=== PATIENT | female | born 1955 | race Caucasian/White ===

== ENCOUNTER 2020-04-19 08:43 | Emergency (ER) | payer MEDICARE, OTHER ==
[~2020-04-19] VITALS: Ht 154.9 cm; Wt 82.2 kg
[~2020-04-19 08:43] MED LIST: ALPR1TAB2 PO; AZIT250T6 PO; LISI-334 PO; PARO10TA57 PO; PRED50TA PO; SIMV10TA15 PO
[2020-04-19] MEDS ORDERED: methylPREDNISolone SOD SUCC PF 125 MG/2 ML VIAL. ONE (09:28)
[2020-04-19] MEDS ORDERED: IPRATRPIUM/ALBUTEROL 0.5/2.5MG 3 ML NEBU. NEB ONE (09:30)
[2020-04-19] MEDS ORDERED: methylPREDNISolone SOD SUCC PF 125 MG/2 ML VIAL. IV ONE (09:30)
--- NOTE | 2020-04-19 09:41 | RAD ---
CHEST AP ONLY 04/19/2020 9:13 AM INDICATION: Shortness of breath COMPARISON: 10/08/2007 TECHNIQUE: Portable frontal view of the chest is provided. FINDINGS: The cardiomediastinal silhouette is within normal limits. Lungs are clear. There are no significant pleural effusions. There is no pulmonary vascular congestion. No pneumothorax. No suspicious osseous abnormality. IMPRESSION: There is no acute cardiopulmonary process. Electronically signed by: Irma Perea MD (04/19/2020 9:38 AM) [id number]
[2020-04-19 09:45] LABS: BASO # 0.1 x10^3/uL (0.0-0.2); BASO % 1 % (0-3); EOS # 0.3 x10^3/uL (0.0-0.7); EOS % 3 % (0-3); HEMATOCRIT 40.6 % (36.0-47.0); HEMOGLOBIN 13.7 g/dL (12.0-15.5); LYMPH # 1.7 x10^3/uL (1.0-4.8); LYMPH % 16 % (24-48); MEAN CORPUSCULAR HEMOGLOBIN 31 pg (25-35); MEAN CORPUSCULAR HGB CONC 34 g/dL (31-37); MEAN CORPUSCULAR VOLUME 92 fL (79-100); MONO # 0.6 x10^3/uL (0.0-1.1); MONO % 6 % (0-9); NEUT # 8.3 x10^3/uL (1.8-7.7); NEUT % 75 % (31-73); PLATELET COUNT 250 x10^3/uL (140-400); RED BLOOD COUNT 4.43 x10^6/uL (3.50-5.40)
[2020-04-19 09:54] LABS: CALCIUM 8.9 mg/dL (8.5-10.1); CREATININE 0.9 mg/dL (0.6-1.0); GFR 62.6; POTASSIUM 4.4 mmol/L (3.5-5.1)
[2020-04-19 09:58] LABS: ALBUMIN 3.8 g/dL (3.4-5.0); ALBUMIN/GLOBULIN RATIO 1.2 (1.0-1.7); TOTAL BILIRUBIN 0.2 mg/dL (0.2-1.0); TOTAL PROTEIN 6.9 g/dL (6.4-8.2)
[2020-04-19] MEDS ORDERED: MORPHINE SULFATE 4 MG/ML VIAL. IV ONE (10:15)
[2020-04-19] MEDS ORDERED: ONDANSETRON PF 4 MG/2 ML VIAL. IVP ONE (10:15)
[2020-04-19] MEDS ORDERED: ALBU2.5V8 IH (11:28)
[2020-04-19] MEDS ORDERED: PRED20TA PO (11:28)
[2020-04-19] MEDS ORDERED: AZIT500T2 PO (11:28)
--- NOTE | 2020-04-19 11:28 | PHYS DOC ---
Past Medical History Past Medical History: Anxiety, Bipolar, COPD, Depression, Fibromyalgia, High Cholesterol, Hypertension, Other Additional Past Medical Histor: PTSD Past Surgical History: Appendectomy, Hysterectomy, Tonsillectomy Additional Past Surgical Histo: breast bx bilateral, ADENOIDECTOMY Smoking Status: Current Every Day Smoker Alcohol Use: Occasionally Drug Use: None Social History Narrative: former drug user General Adult EDM: Chief Complaint: SHORTNESS OF BREATH HPI: HPI: Patient is a 64 year old female presenting to the ED with a chief complaint of shortness of breath. Patient states that this is been going on for the last few days. Patient denies fever, chills, nausea, vomiting, chest pain. Patient stat es that she has many animals in her home and is not sure these are because of her allergies. Patient denies chest pain. Review of Systems: Review of Systems: Constitutional: Denies fever or chills. [] Eyes: Denies change in visual acuity. [] HENT: Denies nasal congestion or sore throat. [] Respiratory: Complains of shortness of breath [] Cardiovascular: Denies chest pain or edema. [] GI: Denies abdominal pain, nausea, vomiting, bloody stools or diarrhea. [] : Denies dysuria. [] Neurologic: Denies headache, focal weakness or sensory changes. [] Heart Score: Risk Factors: Risk Factors: DM, Current or recent (<one month) smoker, HTN, HLP, family history of CAD, obesity. Risk Scores: Score 0 - 3: 2.5% MACE over next 6 weeks - Discharge Home Score 4 - 6: 20.3% MACE over next 6 weeks - Admit for Clinical Observation Score 7 - 10: 72.7% MACE over next 6 weeks - Early Invasive Strategies Current Medications: Current Medications Medications (Trade) Dose Ordered Sig/Kaity Start Time Stop Time Status Last Admin Dose Admin Albuterol/ Ipratropium (Duoneb) 3 ml 1X ONCE 04/19/20 09:30 04/19/20 09:31 DC 04/19/20 09:28 3 ML Methylprednisolone Sodium Succinate (SOLU-Medrol 125MG VIAL) 125 mg STK-MED ONCE 04/19/20 09:28 04/19/20 09:28 DC Morphine Sulfate (Morphine Sulfate) 4 mg 1X ONCE 04/19/20 10:15 04/19/20 10:16 DC 04/19/20 10:41 4 MG Ondansetron HCl (Zofran) 4 mg 1X ONCE 04/19/20 10:15 04/19/20 10:16 DC 04/19/20 10:40 4 MG Allergies: Allergies: Allergies Coded Allergies Type Severity Reaction Last Updated Verified No Known Drug Allergies 11/24/13 No Physical Exam: PE: Constitutional: Well developed, well nourished, no acute distress, non-toxic appearance. [] HENT: Normocephalic, atraumatic Eyes: EOMI Neck: Normal range of motion, Supple Cardiovascular:Heart rate regular rhythm Lungs & Thorax: Bilateral rhonchi [] Abdomen: Bowel sounds normal, soft, no tenderness Extremities: No tenderness, ROM intact Neurologic: Alert and oriented X 3 Current Patient Data: Labs: Laboratory Tests Test 04/19/20 09:13 White Blood Count 11.0 x10^3/uL (4.0-11.0) Red Blood Count 4.43 x10^6/uL (3.50-5.40) Hemoglobin 13.7 g/dL (12.0-15.5) Hematocrit 40.6 % (36.0-47.0) Mean Corpuscular Volume 92 fL (79-100) Mean Corpuscular Hemoglobin 31 pg (25-35) Mean Corpuscular Hemoglobin Concent 34 g/dL (31-37) Red Cell Distribution Width 15.0 % (11.5-14.5) H Platelet Count 250 x10^3/uL (140-400) Neutrophils (%) (Auto) 75 % (31-73) H Lymphocytes (%) (Auto) 16 % (24-48) L Monocytes (%) (Auto) 6 % (0-9) Eosinophils (%) (Auto) 3 % (0-3) Basophils (%) (Auto) 1 % (0-3) Neutrophils # (Auto) 8.3 x10^3/uL (1.8-7.7) H Lymphocytes # (Auto) 1.7 x10^3/uL (1.0-4.8) Monocytes # (Auto) 0.6 x10^3/uL (0.0-1.1) Eosinophils # (Auto) 0.3 x10^3/uL (0.0-0.7) Basophils # (Auto) 0.1 x10^3/uL (0.0-0.2) Sodium Level 140 mmol/L (136-145) Potassium Level 4.4 mmol/L (3.5-5.1) Chloride Level 101 mmol/L (98-107) Carbon Dioxide Level 29 mmol/L (21-32) Anion Gap 10 (6-14) Blood Urea Nitrogen 12 mg/dL (7-20) Creatinine 0.9 mg/dL (0.6-1.0) Estimated GFR (Cockcroft-Gault) 62.6 BUN/Creatinine Ratio 13 (6-20) Glucose Level 131 mg/dL (70-99) H Lactic Acid Level 2.1 mmol/L (0.4-2.0) H Calcium Level 8.9 mg/dL (8.5-10.1) Total Bilirubin 0.2 mg/dL (0.2-1.0) Aspartate Amino Transferase (AST) 36 U/L (15-37) Alanine Aminotransferase (ALT) 51 U/L (14-59) Alkaline Phosphatase 89 U/L (46-116) Troponin I Quantitative < 0.017 ng/mL (0.000-0.055) Total Protein 6.9 g/dL (6.4-8.2) Albumin 3.8 g/dL (3.4-5.0) Albumin/Globulin Ratio 1.2 (1.0-1.7) Laboratory Tests 04/19/20 09:13 Laboratory Tests 04/19/20 09:13 Vital Signs: Vital Signs Date Time Temp Pulse Resp B/P (MAP) Pulse Ox O2 Delivery O2 Flow Rate FiO2 04/19/20 10:41 18 96 Nasal Cannula 2.0 04/19/20 09:00 98.6 104 166/85 (112) 98.6 EKG: EKG: EKG interpretation: 9: 04 AM on 04/19/2020 HR: 93 Sinus rhythm Regular intervals Normal axis Nonspecific ST changes No STEMI Radiology/Procedures: Radiology/Procedures: [] Impression: CXR IMPRESSION: There is no acute cardiopulmonary process. Course & Med Decision Making: Course & Med Decision Making Pertinent Labs and Imaging studies reviewed. (See chart for details) Ordered labs, EKG, chest x-ray, breathing treatment, Solu-Medrol EKG does not show any acute changes. Chest x-ray does not show any acute disease. Labs are within normal limits. Troponin is negative. Want to continue to monitor patient. Patient states that she needs to go home to take care of her animals. Patient states that she is comfortable to be discharged home. States that she will follow-up with her PCP. Discussed results and plan of care with patient. Patient is instructed to follow up with PCP in one to 2 days. Appropriate discharge instructions given to patient to return to the ED or to seek immediate medical evaluation. Patient is instructed to return to the ED if symptoms worsen or if any concerns. Emanuel Disclaimer: Emanuel Disclaimer: This electronic medical record was generated, in whole or in part, using a voice recognition dictation system. Departure Departure Impression: Primary Impression: Acute bronchitis Disposition: HOME, SELF-CARE Condition: STABLE Referrals: UNKNOWN PCP NAME (PCP) Patient Instructions: Acute Bronchitis Additional Instructions: Discussed results and plan of care with patient. Patient is instructed to follow up with PCP in one to 2 days. Appropriate discharge instructions given to patient to return to the ED or to seek immediate medical evaluation. Patient is instructed to return to the ED if symptoms worsen or if any concerns. Scripts Albuterol Sulfate (Proair Hfa) 8.5 Gm Hfa.aer.ad 2 PUFF IH PRN Q4-6HRS PRN for wheezing for 21 Days, #1 INHALER 0 Refills Prov: PARESH DELATORRE DO 04/19/20 Azithromycin (ZITHROMAX TRI-VASHTI) 500 Mg Tablet 1 TAB PO DAILY, #6 TAB Please take 2 tabs on Day 1, then 1 tab for next 4 days. Prov: PARESH DELATORRE DO 04/19/20 Prednisone (PREDNISONE) 20 Mg Tablet 2 TAB PO DAILY for 5 Days, #10 TAB Prov: PARESH DELATORRE DO 04/19/20 Justicifation of Admission Dx: Justifications for Admission: Justification of Admission Dx: No PARESH DELATORRE DO Apr 19, 2020 11:28
[2020-04-19 11:30] VITALS: BP 137/79
--- NOTE | 2020-04-19 12:13 | EKG ---
[facility] [address] [place] [address] Test Date: 2020-04-19 Test Time: 09:04:43 Pat Name: NASRA KURTZ Department: Room: Gender: F Drafter Topographical: : 1955 Requested By: PARESH DELATORRE Order Number: [id number] Reading MD: Matthew Hicks Measurements Intervals [place] Rate: 93 P: 87 OR: 154 QRS: 88 QRSD: 88 T: 36 QT: 352 QTc: 440 Interpretive Statements SINUS RHYTHM NORMAL ECG RI6.02 No previous ECG available for comparison Electronically Signed On 05-17-2020 12:32:53 CDT by Matthew Hicks
== END 2020-04-19 11:52 | disposition home or self-care (01) ==
LOC: ER 08:43
DX: J20.9 Acute bronchitis, unspecified (principal); R06.02 Shortness of breath; F41.9 Anxiety disorder, unspecified; J44.9 Chronic obstructive pulmonary disease, unspecified; F32.9 Major depressive disorder, single episode, unspecified; M79.7 Fibromyalgia; E78.00 Pure hypercholesterolemia, unspecified; I10 Essential (primary) hypertension; F17.200 Nicotine dependence, unspecified, uncomplicated; Z90.89 Acquired absence of other organs; Z90.710 Acquired absence of both cervix and uterus; Z98.890 Other specified postprocedural states; Z79.899 Other long term (current) drug therapy
CPT/HCPCS: 36415; 71045; 80053; 83605; 84484; 85025; 87040; 93005; 94640; 96374; 96375; 99285; J2270; J2405; J2930

== ENCOUNTER 2021-07-26 13:45 | Emergency (ER) | payer MEDICARE ==
[~2021-07-26] VITALS: Ht 154.9 cm; Wt 79.0 kg
[~2021-07-26 13:45] MED LIST changes: +ALBU2.5V8 IH; +AZIT500T2 PO; -LISI-334 PO; +LISI20TA18 PO; +PRED20TA PO
--- NOTE | 2021-07-26 14:20 | ED.ADGEN ---
Past Medical History Past Medical History: Anxiety, Bipolar, COPD, Depression, Fibromyalgia, High Cholesterol, Hypertension, Other Additional Past Medical Histor: PTSD Past Surgical History: Appendectomy, Hysterectomy, Tonsillectomy Additional Past Surgical Histo: breast bx bilateral, ADENOIDECTOMY Smoking Status: Current Every Day Smoker Alcohol Use: Occasionally Drug Use: None General Adult EDM: Chief Complaint: KNEE INJURY HPI: HPI: Patient is a 65-year-old female who arrives via wheelchair to the emergency department complaining of an injury to her right knee. Patient reports she was walking when she inadvertently twisted her right knee causing her to fall directly upon. Patient now reports the pain in the medial aspect of her right knee. Patient states this is worse with walking or any kind of weightbearing activity. She denies injury otherwise. She is awake, alert and nontoxic-appea ring. Review of Systems: Review of Systems: Constitutional: Denies fever or chills. [] Eyes: Denies change in visual acuity. [] HENT: Denies nasal congestion or sore throat. [] Respiratory: Denies cough or shortness of breath. [] Cardiovascular: Denies chest pain or edema. [] GI: Denies abdominal pain, nausea, vomiting, bloody stools or diarrhea. [] : Denies dysuria. [] Musculoskeletal: Reports right knee pain. Denies back pain. [] Integument: Denies rash. [] Neurologic: Denies headache, focal weakness or sensory changes. [] Endocrine: Denies polyuria or polydipsia. [] Lymphatic: Denies swollen glands. [] Psychiatric: Denies depression or anxiety. [] Current Medications: Current Medications Medications (Trade) Dose Ordered Sig/Kaity Start Time Stop Time Status Last Admin Dose Admin Acetaminophen (Tylenol) 1,000 mg 1X ONCE 07/26/21 14:30 07/26/21 14:31 DC Allergies: Allergies: Allergies Coded Allergies Type Severity Reaction Last Updated Verified No Known Drug Allergies 11/24/13 No Physical Exam: PE: Constitutional: Well developed, well nourished, no acute distress, non-toxic appearance. [] HENT: Normocephalic, atraumatic, bilateral external ears normal, oropharynx moist, no oral exudates, nose normal. [] Eyes: PERRLA, EOMI, conjunctiva normal, no discharge. [] Neck: Normal range of motion, no tenderness, supple, no stridor. [] Cardiovascular:Heart rate regular rhythm, no murmur [] Lungs & Thorax: Bilateral breath sounds clear to auscultation [] Abdomen: Bowel sounds normal, soft, no tenderness, no masses, no pulsatile masses. [] Skin: Warm, dry, no erythema, no rash. [] Back: No tenderness, no CVA tenderness. [] Extremities: Patient has tenderness palpation over the medial aspect of her rig ht knee. This is worse with any kind of range of motion testing. There is no injury to the left leg or left thigh. No cyanosis, no clubbing, ROM intact, no edema. [] Neurologic: Alert and oriented X 3, normal motor function, normal sensory function, no focal deficits noted. [] Psychologic: Affect normal, judgement normal, mood normal. [] Current Patient Data: Vital Signs: Vital Signs Date Time Temp Pulse Resp B/P (MAP) Pulse Ox O2 Delivery O2 Flow Rate FiO2 07/26/21 14:29 98.8 68 16 167/87 (113) 94 Room Air 98.8 EKG: EKG: [] Heart Score: C/O Chest Pain: No Risk Factors: Risk Factors: DM, Current or recent (<one month) smoker, HTN, HLP, family history of CAD, obesity. Risk Scores: Score 0 - 3: 2.5% MACE over next 6 weeks - Discharge Home Score 4 - 6: 20.3% MACE over next 6 weeks - Admit for Clinical Observation Score 7 - 10: 72.7% MACE over next 6 weeks - Early Invasive Strategies Radiology/Procedures: Radiology/Procedures: [] Impression: [facility] [address] [place], [place] [id number] IMAGING REPORT Signed PATIENT: NASRA KURTZ ACCOUNT: [id number] : 1955 LOCATION: ER AGE: 65 SEX: F EXAM STATUS: PRE ER ORD. PHYSICIAN: RUDI PARISI DO REASON: pain/fall PROCEDURE: KNEE RIGHT 3V 3 views right knee 07/26/2021 2:19 PM Indication: Reason: pain/fall / Comparison: None available Findings: No evidence of acute fracture or dislocation is seen. Tricompartmental degenerative changes including osteophytosis is noted. There is deformity of the right proximal fibula chronic in appearance. There appears to be a small suprapatellar joint effusion. IMPRESSION: A small joint effusion and degenerative change without radiographic evidence of acute osseous abnormality Electronically signed by: Neel Kincaid MD (07/26/2021 2:44 PM) [id number] DICTATED and SIGNED BY: NEEL KINCAID MD DATE: 07/26/21 [id number] Course & Med Decision Making: Course & Med Decision Making Pertinent Labs and Imaging studies reviewed. (See chart for details) [] Dragon Disclaimer: Dragon Disclaimer: This electronic medical record was generated, in whole or in part, using a voice recognition dictation system. Departure Departure Impression: Primary Impression: Contusion of right knee Additional Impression: Right knee sprain Disposition: HOME / SELF CARE / HOMELESS Condition: STABLE Referrals: UNKNOWN PCP NAME (PCP) CHALO RAM MD Patient Instructions: Knee - Ligament Injury, Arthroscopy, Knee - Meniscus Injury, Arthroscopy, Care After Scripts Hydrocodone Bit/Acetaminophen (HYDROCODONE-APAP 5-325 ) 1 Tab Tablet 1 TAB PO PRN Q6HRS PRN for PAIN for 3 Days, #12 TAB 0 Refills Prov: RUDI PARISI DO 07/26/21 Problem Qualifiers RUDI PARISI DO Jul 26, 2021 14:20
[2021-07-26 14:29] VITALS: BP 167/87
[2021-07-26] MEDS ORDERED: ACETAMINOPHEN 500 MG TABLET PO ONE (14:30)
--- NOTE | 2021-07-26 14:46 | RAD ---
3 views right knee 07/26/2021 2:19 PM Indication: Reason: pain/fall / Comparison: None available Findings: No evidence of acute fracture or dislocation is seen. Tricompartmental degenerative changes including osteophytosis is noted. There is deformity of the right proximal fibula chronic in appeara nce. There appears to be a small suprapatellar joint effusion. IMPRESSION: A small joint effusion and degenerative change without radiographic evidence of acute oss eous abnormality Electronically signed by: Neel Goodwin MD (07/26/2021 2:44 PM) [id number]
[2021-07-26] MEDS ORDERED: HYDR-2761 PO (14:59)
== END 2021-07-26 15:10 | disposition home or self-care (01) ==
LOC: ER 14:54
DX: S83.91XA Sprain of unspecified site of right knee, initial encounter (principal); F31.9 Bipolar disorder, unspecified; J44.9 Chronic obstructive pulmonary disease, unspecified; E78.00 Pure hypercholesterolemia, unspecified; I10 Essential (primary) hypertension; F17.200 Nicotine dependence, unspecified, uncomplicated; W18.39XA Other fall on same level, initial encounter; Y93.89 Activity, other specified; Y92.89 Other specified places as the place of occurrence of the external cause; Y99.8 Other external cause status
CPT/HCPCS: 73562; 99283